=== PATIENT | male | born 1955 | race Caucasian/White ===

== ENCOUNTER 2022-05-02 22:58 | Emergency (ER) | payer MEDICARE ==
[~2022-05-02] VITALS: Ht 185.4 cm; Wt 91.0 kg
[2022-05-03] MEDS ORDERED: AMOX TR-K CLV1 EAC1 PO (00:22)
== END 2022-05-03 03:05 | disposition home or self-care (01) ==
LOC: ED 22:58
DX: L03.114 Cellulitis of left upper limb (principal); L03.113 Cellulitis of right upper limb; E11.9 Type 2 diabetes mellitus without complications; L02.414 Cutaneous abscess of left upper limb; L02.413 Cutaneous abscess of right upper limb
CPT/HCPCS: 36415; 80053; 81001; 85025; 99283; A9270; J1815; J7121